=== PATIENT | female | born 1935 | race Caucasian/White ===

== ENCOUNTER 2019-01-12 08:43 | Emergency (ER) | payer OTHER ==
[~2019-01-12] VITALS: Ht 152.4 cm; Wt 56.7 kg
[2019-01-12] MEDS ORDERED: CARVEDILOL25 MG (08:55)
[2019-01-12] MEDS ORDERED: NORVASC5 MG (08:55)
[2019-01-12] MEDS ORDERED: MICARDIS80 MG (08:56)
[2019-01-12] MEDS ORDERED: ZETIA10 MG (08:57)
[2019-01-12] MEDS ORDERED: LIPITOR40 MG (08:57)
[2019-01-12] MEDS ORDERED: SYNTHROID75 MCG (08:57)
[2019-01-12] MEDS ORDERED: RESTORIL15 M1 (08:57)
[2019-01-12] MEDS ORDERED: VITAMIN C500 M6 (08:58)
[2019-01-12] MEDS ORDERED: HYDROCHLOROTH12.5 MG (08:58)
[2019-01-12] MEDS ORDERED: VITAMIN D1000 UNIT (08:58)
[2019-01-12] MEDS ORDERED: LEVAQUIN750 MG PO (17:10)
== END 2019-01-12 17:41 | disposition home or self-care (01) ==
LOC: ER 08:43
DX: J22 Unspecified acute lower respiratory infection (principal)